=== PATIENT | female | born 1995 | race Caucasian/White ===

== ENCOUNTER 2018-07-04 03:24 | Inpatient (IN) | payer MEDICAID ==
[~2018-07-04] VITALS: Ht 149.9 cm; Wt 81.7 kg
[2018-07-04] MEDS ORDERED: ONDA4 PO (04:04)
[2018-07-04] MEDS ORDERED: DICY20 PO (04:04)
[2018-07-04 04:28] LABS: APPEARANCE,URINE CLOUDY (CLEAR); BILIRUBIN,URINE PRELIM. POSITIVE (NEGATIVE); GLUCOSE, URINE (UA) NEGATIVE (NEGATIVE); KETONES,URINE NEGATIVE (NEGATIVE); LEUKOCYTE ESTERASE ,URINE SMALL (NEGATIVE); NITRATE,URINE NEGATIVE (NEGATIVE); OCCULT BLOOD,URINE NEGATIVE (NEGATIVE); PROTEIN,URINE NEGATIVE (NEGATIVE)
[2018-07-04 04:42] LABS: BACTERIA,URINE Rare /HPF (None Seen); RBC,URINE 0-2 /HPF (0-2)
[2018-07-04 04:43] LABS: SQUAMOUS EPITHELIAL CELL,UR Many /LPF (None Seen)
[2018-07-04 04:52] LABS: BASOPHILS % (AUTO) 0.3 % (0.0-2.0); EOSINOPHILS % (AUTO) 0.4 % (1.0-6.0); HEMATOCRIT 44.7 % (36-46); HEMOGLOBIN 14.6 g/dL (12.0-16.0); LYMPHOCYTES # (AUTO) 1.3 K/uL (1.0-4.8); LYMPHOCYTES % (AUTO) 9.2 % (22.0-44.0); MEAN CORPUSCULAR HGB CONC 32.6 G/dL (31.0-37.0); MEAN CORPUSCULAR VOLUME 86 fL (80-100); MONOCYTES # (AUTO) 0.4 K/uL (0.1-1.0); MONOCYTES % (AUTO) 2.9 % (2.0-9.0); NEUTROPHILS # (AUTO) 12.3 K/uL (1.8-7.7); PLATELET COUNT (AUTO) 398 K/uL (150-450); RED BLOOD CELL COUNT(AUTO) 5.19 MIL/uL (4.00-5.20); RED CELL DISTRIBUTION WIDTH 15.5 % (11.5-14.5)
[2018-07-04 04:54] LABS: NEUTROPHILS % (AUTO) 87.2 % (40.0-70.0)
[2018-07-04 05:00] LABS: ANION GAP 8 mmol/L (8-16); CALCIUM, TOTAL 9.7 mg/dL (8.8-10.5); CARBON DIOXIDE 29 mmol/L (22-29); CHLORIDE 102 mmol/L (98-107); CREATININE 0.78 mg/dL (0.60-1.30); GLOMERULAR FILTR. RATE CALC > 60 mL/min (>60); GLUCOSE,RANDOM 126 mg/dL (70-110); POTASSIUM 3.8 mmol/L (3.5-5.1); SODIUM SERUM 139 mmol/L (136-145); UREA NITROGEN, BLOOD 16 mg/dL (7-18)
[2018-07-04 05:06] LABS: ALANINE AMINOTRANSFERASE 790 U/L (12-78); ALBUMIN 3.8 g/dL (3.4-5.0); ALKALINE PHOSPHATASE 326 U/L (46-116); ASPARTATE AMINOTRANSFERASE 517 U/L (15-37); BILIRUBIN,TOTAL 1.5 mg/dL (0.1-1.0); LIPASE 131 U/L (73-393); TOTAL PROTEIN, SERUM 8.1 g/dL (6.4-8.2)
[2018-07-04] MEDS ORDERED: SODIUM CHLORIDE 0.9% 1,000 ML IV ONE ×2 (05:30→10:30)
[2018-07-04] MEDS ORDERED: MORPHINE SULFATE 4 MG/ML SYRINGE IVP ONE (05:30)
[2018-07-04] MEDS ORDERED: METOCLOPRAMIDE HCL 5 MG/ML 2 ML VIAL IVP ONE (05:30)
[2018-07-04] MEDS ORDERED: PIPERACILLIN SODIUM/TAZOBACTAM 4.5 GM in DEXTROSE 5%-WATER 100 ML IV ONE (08:30)
[2018-07-04 09:20] LABS: INR 0.9 (0.9-1.1); PROTHROMBIN TIME 9.4 SEC (9.4-11.6)
[2018-07-04] MEDS ORDERED: MORPHINE SULFATE 4 MG/ML SYRINGE IVP PRN (10:30)
[2018-07-04] MEDS ORDERED: 0.9% SODIUM CHLORIDE 10 ML SYRINGE IVP PRN (10:30)
[2018-07-04] MEDS ORDERED: ACETAMINOPHEN 325 MG TABLET PO PRN (10:30)
[2018-07-04] MEDS ORDERED: ONDANSETRON HCL 4 MG/2 ML VIAL IVP PRN (10:30)
[2018-07-04 12:50] VITALS: BP 98/67
[2018-07-04] MEDS ORDERED: LIDOCAINE 1%/EPI 1:200,000/PF 10 ML VIAL ONE (14:57)
[2018-07-04] MEDS ORDERED: IOHEXOL 240 MG/ML 20 ML VIAL ONE ×2 (14:57)
[2018-07-04] MEDS ORDERED: SODIUM CL IRRIG SOLN BAG 0 ML IRRIG ONE (14:58)
[2018-07-04] MEDS ORDERED: BUPIVACAINE 0.25%/EPI 1:200,000/PF 10 ML VIAL ONE (15:00)
[2018-07-04 15:08] VITALS: BP 113/71
[2018-07-04] MEDS ORDERED: HYDROmorphone 2 MG/ML SYRINGE IVP PRN (15:15)
[2018-07-04] MEDS ORDERED: FentaNYL CITRATE-PF 100 MCG/2 ML VIAL IVP PRN (15:15)
[2018-07-04] MEDS ORDERED: MEPERIDINE-PF 25 MG/ML VIAL IVP PRN (15:15)
[2018-07-04] MEDS: RINGERS SOLUTION,LACTATED 1,000 ML IV SCH ×2 (16:14→21:47)
[2018-07-04] MEDS ORDERED: RINGERS SOLUTION,LACTATED 1,000 ML IV ONE (18:03)
[2018-07-04 19:28] VITALS: BP 117/86
[2018-07-04] MEDS ORDERED: OXYGEN THERAPY IH SCH (20:00)
[2018-07-04] MEDS ORDERED: MORPHINE SULFATE 2 MG/ML SYRINGE IVP PRN (23:00)
[2018-07-04] MEDS: KETOROLAC TROMETHAMINE 30 MG/ML VIAL IVP SCH (23:48)
[2018-07-04] MEDS: ACETAMINOPHEN 1000 MG/ISO-OSM 100 ML IV SCH (23:49)
[2018-07-05 00:11] VITALS: BP 113/76
[2018-07-05] MEDS ORDERED: HYDROCODONE/ACETAMINOPHEN 5-325 MG TABLET PO PRN (01:30)
[2018-07-05] MEDS ORDERED: ZOLPIDEM TARTRATE 5 MG TABLET PO PRN (01:30)
[2018-07-05] MEDS ORDERED: MORPHINE SULFATE 2 MG/ML SYRINGE IVP PRN (01:30)
[2018-07-05] MEDS ORDERED: ACETAMINOPHEN 325 MG TABLET PO PRN (01:30)
[2018-07-05] MEDS ORDERED: IPRATROPIUM BROMIDE 0.5 MG/2.5 ML NEB SOLUTION NEB PRN (01:30)
[2018-07-05] MEDS ORDERED: BISACODYL 10 MG RECTAL RECTAL SUPPOSITORY PR PRN (01:30)
[2018-07-05] MEDS ORDERED: ALBUTEROL SULFATE 2.5 MG/0.5 ML NEB SOLUTION NEB PRN (01:30)
[2018-07-05] MEDS ORDERED: ONDANSETRON HCL 4 MG/2 ML VIAL IVP PRN (01:30)
[2018-07-05] MEDS ORDERED: MAGNESIUM HYDROXIDE SUSPENSION 30 ML UDCUP PO PRN (01:30)
[2018-07-05 05:15] VITALS: BP 113/65
[2018-07-05] MEDS: KETOROLAC TROMETHAMINE 30 MG/ML VIAL IVP SCH ×3 (05:53→16:05)
[2018-07-05] MEDS: ACETAMINOPHEN 1000 MG/ISO-OSM 100 ML IV SCH (05:53)
[2018-07-05] MEDS ORDERED: 0.9% SODIUM CHLORIDE 10 ML VIAL IVP ONE (06:22)
[2018-07-05] MEDS ORDERED: LIDOCAINE/PF 2% 5 ML VIAL IM ONE (06:22)
[2018-07-05] MEDS ORDERED: KETOROLAC TROMETHAMINE 60 MG/2 ML VIAL IM ONE (06:22)
[2018-07-05] MEDS ORDERED: ROCURONIUM BROMIDE 10 MG/ML 5 ML VIAL IVP ONE (06:22)
[2018-07-05] MEDS ORDERED: FentaNYL CITRATE-PF 100 MCG/2 ML VIAL IVP ONE (06:22)
[2018-07-05] MEDS ORDERED: MIDAZOLAM HCL 2 MG/2 ML VIAL IVP ONE (06:22)
[2018-07-05] MEDS ORDERED: SUCCINYLCHOLINE CHLORIDE 20 MG/ML 10 ML VIAL IVP ONE (06:22)
[2018-07-05] MEDS ORDERED: PROPOFOL 1% 20 ML VIAL IVP ONE (06:22)
[2018-07-05] MEDS ORDERED: ONDANSETRON HCL 4 MG/2 ML VIAL IVP ONE (06:22)
[2018-07-05] MEDS: HEPARIN SODIUM,PORCINE 5,000 UNITS/ML VIAL SQ SCH ×2 (07:46→16:05)
[2018-07-05 08:00] VITALS: BP 111/80
[2018-07-05] MEDS ORDERED: DOCUSATE SODIUM 100 MG CAPSULE PO SCH (09:00)
[2018-07-05] MEDS ORDERED: PANTOPRAZOLE SODIUM 40 MG DR TABLET PO SCH (09:00)
[2018-07-05 11:36] VITALS: BP 115/75
[2018-07-05 15:24] VITALS: BP 115/67
== END 2018-07-05 19:30 | disposition short-term general hospital (02) | DRG 951 ==
LOC: EMS 03:24 → 6N 10:42
PROVIDERS: ADMIT Hospitalist; ATTEND Hospitalist
PROC: BF131ZZ Fluoroscopy of Gallbladder and Bile Ducts using Low Osmolar Contrast (ICD-10-PCS; 2018-07-04)
PROC: 0FT44ZZ Resection of Gallbladder, Percutaneous Endoscopic Approach (ICD-10-PCS; principal; 2018-07-04 16:30)
DX: O99.63 Diseases of the digestive system complicating the puerperium (principal); K80.62 Calculus of gallbladder and bile duct with acute cholecystitis without obstruction; D72.829 Elevated white blood cell count, unspecified; E66.9 Obesity, unspecified; Z79.899 Other long term (current) drug therapy; Z68.36 Body mass index [BMI] 36.0-36.9, adult
CPT/HCPCS: 74181; 76705; 87086; 88304; 96365; 96375; G0378; J0131; J0330; J0690; J1644; J1885; J2250; J2270; J2405; J2543; J2704; J2765; J3010; J3490; J7030; J7060; J7120; Q9966

== ENCOUNTER 2023-05-10 22:12 | Emergency (ER) | payer MEDICAID ==
[~2023-05-10] VITALS: Ht 149.9 cm; Wt 72.7 kg
[~2023-05-10 22:12] MED LIST: DICY20TA95 PO; ONDA-104 PO
[2023-05-10 22:25] VITALS: TEMP 98.2
[2023-05-10 23:50] LABS: APPEARANCE,URINE HAZY (CLEAR); BILIRUBIN,URINE NEGATIVE (NEGATIVE); COLOR,URINE YELLOW (YELLOW); GLUCOSE, URINE (UA) NEGATIVE (NEGATIVE); KETONES,URINE NEGATIVE (NEGATIVE); LEUKOCYTE ESTERASE ,URINE MODERATE (NEGATIVE); NITRATE,URINE NEGATIVE (NEGATIVE); OCCULT BLOOD,URINE NEGATIVE (NEGATIVE); PH,URINE 5.5 (5.0-8.0); PROTEIN,URINE TRACE mg/dL (NEGATIVE); UROBILINOGEN,URINE <=1.0 mg/dL (<=1.0)
[2023-05-10 23:52] LABS: HCG,QUAL URINE POSITIVE (NEGATIVE)
[2023-05-11 00:15] LABS: BACTERIA,URINE Few /HPF (None Seen); RBC,URINE None Seen /HPF (0-2); SQUAMOUS EPITHELIAL CELL,UR Moderate /LPF (None Seen)
[2023-05-11 00:18] LABS: BASOPHILS % (AUTO) 0.5 % (0.0-2.0); EOSINOPHILS % (AUTO) 0.8 % (1.0-6.0); HEMATOCRIT 38.2 % (36-46); HEMOGLOBIN 13.1 g/dL (12.0-16.0); LYMPHOCYTES # (AUTO) 1.6 K/uL (1.0-4.8); LYMPHOCYTES % (AUTO) 18.8 % (22.0-44.0); MEAN CORPUSCULAR HEMOGLOBIN 31.1 pg (26.0-34.0); MEAN CORPUSCULAR HGB CONC 34.2 G/dL (31.0-37.0); MEAN CORPUSCULAR VOLUME 91 fL (80-100); MONOCYTES # (AUTO) 0.6 K/uL (0.1-1.0); MONOCYTES % (AUTO) 7.5 % (2.0-9.0); NEUTROPHILS % (AUTO) 72.4 % (40.0-70.0); PLATELET COUNT (AUTO) 339 K/uL (150-450); RED CELL DISTRIBUTION WIDTH 12.9 % (11.5-14.5); WHITE BLOOD COUNT (AUTO) 8.2 K/uL (4.5-11.0)
[2023-05-11 00:27] LABS: ANION GAP 11 mmol/L (8-16); CALCIUM, TOTAL 8.7 mg/dL (8.8-10.5); CARBON DIOXIDE 25 mmol/L (22-29); CHLORIDE 103 mmol/L (98-107); CREATININE 0.68 mg/dL (0.60-1.30); GLOMERULAR FILTR. RATE CALC > 60 mL/min (>60); GLUCOSE,RANDOM 108 mg/dL (70-110); POTASSIUM 3.8 mmol/L (3.5-5.1); SODIUM SERUM 139 mmol/L (136-145); UREA NITROGEN, BLOOD 6 mg/dL (7-18)
[2023-05-11 00:53] LABS: ALANINE AMINOTRANSFERASE 35 U/L (12-78); ALBUMIN 3.7 g/dL (3.4-5.0); ALKALINE PHOSPHATASE 84 U/L (46-116); ASPARTATE AMINOTRANSFERASE 25 U/L (15-37); BILIRUBIN,TOTAL 0.2 mg/dL (0.1-1.0); HCG,QUANTITATIVE 1926 mIU/mL (0-6); TOTAL PROTEIN, SERUM 7.6 g/dL (6.4-8.2)
[2023-05-11] MEDS ORDERED: CEPHALEXIN MONOHYDRATE 500 MG CAPSULE PO ONE (01:45)
[2023-05-11] MEDS ORDERED: ValACYclovir HCL 500 MG TABLET PO ONE (02:00)
[2023-05-11] MEDS ORDERED: CLOTRIMAZOLE 1% 45 GM VAGINAL CREAM VG ONE (02:15)
[2023-05-11] MEDS ORDERED: VALA100026 PO (02:17)
[2023-05-11] MEDS ORDERED: GYNEVAG VG (02:17)
[2023-05-11] MEDS ORDERED: CEPH-558 PO (02:17)
[2023-05-11 04:26] VITALS: BP 119/67; PULSE 89; RESP 16
== END 2023-05-11 04:34 | disposition left against medical advice (07) ==
LOC: EMS 22:17
DX: O23.41 Unspecified infection of urinary tract in pregnancy, first trimester (principal); O98.511 Other viral diseases complicating pregnancy, first trimester; N39.0 Urinary tract infection, site not specified; Z3A.08 8 weeks gestation of pregnancy; Z98.890 Other specified postprocedural states; Z90.49 Acquired absence of other specified parts of digestive tract
CPT/HCPCS: 76801; 80053; 81001; 84702; 84703; 85025; 87086; 87186; 99284